=== PATIENT | female | born 1970 | race American Indian/Alaskan Native ===

== ENCOUNTER 2017-08-01 11:22 | Emergency (ER) | payer OTHER ==
[2017-08-01 12:41] LABS: Hematocrit 39.6 % (30.3-42.9); Hemoglobin 13.3 gm/dl (10.1-14.3); Mean Corpuscular HGB Conc 34 % (30-34); Mean Corpuscular Hemoglobin 28 pg (28-32); Mean Corpuscular Volume 83 fl (79-97); Monocytes % (Auto) 1.1 % (0.0-7.3); Red Blood Count 4.76 M/mm3 (3.65-5.03); Red Cell Distribution Width 14.5 % (13.2-15.2)
[2017-08-01 12:46] LABS: BUN/Creatinine Ratio 20; Blood Urea Nitrogen 12 mg/dL (7-17); Hemolysis Index 3
[2017-08-01 12:55] VITALS: BP 134/77
[2017-08-01 13:22] LABS: Basophils % (Manual) 0 % (0.0-1.8); Eosinophils % (Manual) 0 % (0.0-4.3); Platelet Clumps Rare; Platelet Estimate Consistent w Auto; RBC Morphology Normal; Total Cells Counted 100
[2017-08-01 13:23] LABS: Platelet Count 390 K/mm3 (140-440)
--- NOTE | 2017-08-01 13:44 | XRay Report ---
ROUTINE CHEST, TWO VIEWS: HISTORY: Short of breath. The trachea, heart, mediastinal contour, lung moura and bony thorax are unremarkable. There is suggestive of mild right pleural thickening at the right lung base. IMPRESSION: No acute cardiopulmonary process.
--- NOTE | 2017-08-01 13:45 | Emergency Department Report ---
ED General Adult HPI - General Chief complaint: Adult Asthma Stated complaint: DIFFICULTY BREATHING Time Seen by Provider: 08/01/17 13:23 Source: patient, EMS Mode of arrival: Stretcher Limitations: No Limitations - History of Present Illness Initial comments: Patient received 2 nebs in route by EMS, as well as, Solu-Medrol. The patient received another neb after arrival. Earlier after she requested discharge by the nurse. I was engaged with another critical patient initially required stabilization. However upon my encounter the patient states that the medicine did now work and she was ready for discharge. Patient states that she went to her primary care provider at [place] yesterday. He placed her on a Medrol Dosepak. She stated that she had medicine for her machine and a hand-held inhaler. She also stated that she was on Advair but didn't like it and thought this was why she has had 2 breakthrough attacks since she has been on this medicine. He was recently switched from something else that she doesn't recall the name of. She has had no recent travel no chest discomfort other than associated with wheezing. He denies any cough productive of sputum or fever. -: days(s) Severity scale (0 -10): 0 Associated Symptoms: denies other symptoms, cough (nonproductive) Treatments Prior to Arrival: other (per EMS and as above) - Related Data Allergies Allergy/AdvReac Type Severity Reaction Status Date / Time Sulfa (Sulfonamide Allergy Unknown Verified 08/01/17 11:51 Antibiotics) ED Review of Systems ROS: Stated complaint: DIFFICULTY BREATHING Other details as noted in HPI Constitutional: denies: chills, fever Eyes: denies: eye pain, eye discharge, vision change ENT: denies: ear pain, throat pain Respiratory: cough, wheezing Cardiovascular: denies: chest pain, palpitations Endocrine: no symptoms reported Gastrointestinal: denies: abdominal pain, nausea, diarrhea Genitourinary: denies: urgency, dysuria, discharge Musculoskeletal: denies: back pain, joint swelling, arthralgia Skin: denies: rash, lesions Neurological: denies: headache, weakness, paresthesias Psychiatric: denies: anxiety, depression Hematological/Lymphatic: denies: easy bleeding, easy bruising ED Past Medical Hx - Past Medical History Previous Medical History?: Yes Hx Asthma: Yes Additional medical history: endometriosis - Surgical History Past Surgical History?: Yes - Social History Smoking Status: Never Smoker Substance Use Type: None ED Physical Exam - General Limitations: No Limitations General appearance: alert, in no apparent distress - Head Head exam: Present: atraumatic, normocephalic - Eye Eye exam: Present: normal appearance. Absent: scleral icterus - ENT ENT exam: Present: mucous membranes moist - Neck Neck exam: Present: normal inspection - Respiratory Respiratory exam: Present: normal lung sounds bilaterally. Absent: respiratory distress - Cardiovascular Cardiovascular Exam: Present: regular rate, normal rhythm. Absent: systolic murmur, diastolic murmur, rubs, gallop - GI/Abdominal GI/Abdominal exam: Present: soft, normal bowel sounds. Absent: distended, tenderness, guarding, rebound - Extremities Exam Extremities exam: Present: normal inspection. Absent: pedal edema, calf tenderness - Back Exam Back exam: Present: normal inspection - Neurological Exam Neurological exam: Present: alert, oriented X3, CN II-XII intact. Absent: motor sensory deficit - Psychiatric Psychiatric exam: Present: normal affect, normal mood - Skin Skin exam: Present: warm, dry, intact, normal color. Absent: rash ED Course Vital Signs 08/01/17 08/01/17 12:44 12:54 Pulse Rate 91 H Blood Pressure 134/77 [Left] O2 Sat by Pulse 96 96 Oximetry - Reevaluation(s) Reevaluation #1: Patient was clear for discharge. She is encouraged to follow-up with her [facility] provider. She states she has all her necessary medicine. 08/01/17 13:46 ED Medical Decision Making - Lab Data Result diagrams: 08/01/17 12:06 08/01/17 12:06 Laboratory Results - last 24 hr 08/01/17 08/01/17 12:06 12:06 WBC 11.5 H RBC 4.76 Hgb 13.3 Hct 39.6 MCV 83 MCH 28 MCHC 34 RDW 14.5 Plt Count 390 Mcintosh % (Auto) 1.1 Add Manual Diff Complete Total Counted 100 Seg Neutrophils % 88.9 H Seg Neuts % (Manual) 89.0 H Band Neutrophils % 0 Lymphocytes % (Manual) 10.0 L Reactive Lymphs % (Man) 0 Monocytes % (Manual) 1.0 Eosinophils % (Manual) 0 Basophils % (Manual) 0 Metamyelocytes % 0 Myelocytes % 0 Promyelocytes % 0 Blast Cells % 0 Nucleated RBC % Not Reportable Seg Neutrophils # Man 10.2 H Band Neutrophils # 0.0 Lymphocytes # (Manual) 1.2 Abs React Lymphs (Man) 0.0 Monocytes # (Manual) 0.1 Eosinophils # (Manual) 0.0 Basophils # (Manual) 0.0 Metamyelocytes # 0.0 Myelocytes # 0.0 Promyelocytes # 0.0 Blast Cells # 0.0 WBC Morphology Not Reportable Hypersegmented Neuts Not Reportable Hyposegmented Neuts Not Reportable Hypogranular Neuts Not Reportable Smudge Cells Not Reportable Toxic Granulation Not Reportable Toxic Vacuolation Not Reportable Dohle Bodies Not Reportable Pelger-Huet Anomaly Not Reportable Cristina Rods Not Reportable Platelet Estimate Consistent w auto Clumped Platelets Rare Plt Clumps, EDTA Not Reportable Large Platelets Not Reportable Giant Platelets Not Reportable Platelet Satelliting Not Reportable Plt Morphology Comment Not Reportable RBC Morphology Normal Dimorphic RBCs Not Reportable Polychromasia Not Reportable Hypochromasia Not Reportable Poikilocytosis Not Reportable Anisocytosis Not Reportable Microcytosis Not Reportable Macrocytosis Not Reportable Spherocytes Not Reportable Pappenheimer Bodies Not Reportable Sickle Cells Not Reportable Target Cells Not Reportable Tear Drop Cells Not Reportable Ovalocytes Not Reportable Helmet Cells Not Reportable Daniel-Stanberry Bodies Not Reportable [place] Rings Not Reportable Lyons Cells Not Reportable Bite Cells Not Reportable Crenated Cell Not Reportable Elliptocytes Not Reportable Acanthocytes (Spur) Not Reportable Rouleaux Not Reportable Hemoglobin C Crystals Not Reportable Schistocytes Not Reportable Malaria parasites Not Reportable Shantanu Bodies Not Reportable Hem Pathologist Commnt No Sodium 139 Potassium 4.0 Chloride 95.8 L Carbon Dioxide 21 L Anion Gap 26 BUN 12 Creatinine 0.6 L Estimated GFR > 60 BUN/Creatinine Ratio 20 Glucose 124 H Calcium 9.0 Critical care attestation.: If time is entered above; I have spent that time in minutes in the direct care of this critically ill patient, excluding procedure time. ED Disposition Clinical Impression: Asthma exacerbation Qualifiers: Asthma severity: moderate Asthma persistence: unspecified Qualified Code(s): J45.901 - Unspecified asthma with (acute) exacerbation Disposition: - TO HOME OR SELFCARE Is pt being admited?: No Does the pt Need Aspirin: No Condition: Stable Instructions: Asthma (ED) Additional Instructions: Return any acute change or problem. Continue on current protocol. Follow up with [facility] within 24 hours. Referrals: PRIMARY CARE, [Primary Care Provider] - 24 Hours Time of Disposition: 13:30
== END 2017-08-01 13:35 | disposition home or self-care (01) ==
LOC: ED 11:22
DX: J45.901 Unspecified asthma with (acute) exacerbation (principal); Z88.2 Allergy status to sulfonamides
CPT/HCPCS: 36415; 71046; 80048; 85007; 85025; 93005; 93010